=== PATIENT | female | born 1955 | race Caucasian/White ===

== ENCOUNTER 2018-11-29 10:45 | Observation (INO) ==
[2018-11-29] MEDS ORDERED: Naloxone 0.4 MG/ML INJ IVP PRN (13:33)
[2018-11-29] MEDS ORDERED: D5% in Water 1,000 ML IVC PRN (13:46)
[2018-11-29] MEDS ORDERED: *HR* Dextrose 50 % in Water (Syg) 50 ML SYRINGE IVP PRN (13:46)
[2018-11-29] MEDS ORDERED: Dextrose Gel 15 GM/37.5 ML TUBE PO PRN ×2 (13:46)
--- NOTE | 2018-11-29 14:00 | Internal Med History&Physical ---
Date of Encounter: 11/29/18 Time of Encounter: 13:56 Internal Medicine - H&P: HPI Chief complaint: Weakness Admitted From: Home Plans for Post Hospital Care: Home History of present illness: Ms. Ortega is a 63 year old female with past medical history significant for diabetes mellitus type 2 was admitted to [facility] after transfer from [facility]. Patient went to the emergency room today with the complaint of weakness and dizziness which is going on for past few weeks. Patient reports that her weakness got significantly worse in past 2-3 days. Patient reports she started feeling dizzy when she stand up in past 2-3 days. Patient denied any injury to head and passing out. Patient denies any loss of consciousness. Patient denies any tingling and numbness. Patient denies any dark stool, rectal bleeding, and blood in the urine. Patient denies any fever and chills. Patient denies any chest pain, palpitation, and difficulty breathing. Patient denied any nausea or vomiting and abdominal pain. Patient denied any recent nonintentional weight loss. Upon presentation at [place] emergency room patient's vitals were stable. Patient had a blood work done at [facility]. Patient's CBC was significant for hemoglobin of 3.2 with low MCV and low MCH and low MCHC and high RDW. Her sestamibi C was within normal limit and platelet was elevated at 578. LDH was low and bilirubin was within normal limit Vitamin B-12 and TSH was within normal limit. Patient was transferred to [facility] for further workup. Past medical, past surgical, social, and family history reviewed with the patient. Past Med Surg Social Fam HX - Past Medical History Medical history: diabetes Psychiatric history: no psych history - Past Surgical History Surgical History: - Social History Smoking Status: Former smoker Smokeless Tobacco Status: No Alcohol use: occasionally Drug use: none Occupational status: retired Current living situation: Home, With Family Activity Level: Independent ambulation Recent Out of Country Travel Within the Last 8 Weeks: No Exposure or Possible Exposure to Illness During Travel: No - Family History Mother Hx Family Cardiac Disorders: Yes (Hypertension) Hx Family Endocrine Disorder: Yes (Diabetes mellitus type 2) Father Hx Family Respiratory Disorders: Yes (Emphysema) Internal Medicine - H&P: Meds No Known Home Drugs 11/29/18 [History] Allergy/AdvReac Type Severity Reaction Status Date / Time No Known Allergies Allergy Verified 11/29/18 08:46 All Systems PM: A 10-system review of systems was performed and is negative for pertinent findings except as documented above in the HPI. - Constitutional Vitals: Temp Pulse Resp BP Pulse Ox 98.2 F 94 16 152/82 100 11/29/18 13:54 11/29/18 13:54 11/29/18 13:54 11/29/18 13:54 11/29/18 13:54 General appearance: Present: cooperative, A&O X 3 Exam: General: A & O 3, Inmild distress. Mom noticed pale looking female. Appears older than the stated age HENNT: PERRLA. Head atraumatic and neck supple Eyes: Pale conjuctiva CVS S1 and S2 regular, no murmur RS: Clear to air entry bilaterally, no wheeze, no crackles Abdomen: Soft and nontender. Bowel sounds normal 4 Extremities: No cyanosis, clubbing, and edema Neurology: Cranial 2 through 12 normal. Motor strength 5/5 bilaterally. Sensation intact Psychiatry: A & O X 3 Skin: Pale and dry - Assessment and Plan (1) Microcytic hypochromic anemia Current Visit: Yes Status: Acute Assessment and plan: Pt presented to the hospital with complaint of weakness and dizziness for possible freaks. Patient reports that weakness and dizziness has worsened significantly over possible base. Patient initial workup with the removal hemoglobin at 3.8, low MCV, low MCHC. Patient had a low ferritin level, low energy as able, and normal bilirubin. Most likely microcytic hypochromic anemia likely due to iron deficiency due to poor dietary intake. Patient denied any history of alcoholism. Patient denied any history of weight loss. Patient's WBC is within normal limits and platelets are elevated which is likely reactive. Patient does not have Pancytopenia and no weight loss so malignant etiology is less likely at this time. Patient's ferritin and [place] emergency room was low. Will get iron panel. LDH level low with normal hemoglobin does not suggest any hemolytic anemia as well. Patient denies any dark stool, rectal bleeding, and blood in the urine, however GI bleed needs to be ruled out at this time. - Type and cross - PRBC 2 ordered - H&H every 6 hours. Next H&H draw at 6 PM - We will transfuse 2 more units after next H&H if needed - Iron panel ordered. - Surgery on consult. Appreciate input and recommendations (2) Iron deficiency anemia Current Visit: Yes Status: Acute Assessment and plan: Plan as assessment #1 Qualifiers: Iron deficiency anemia type: unspecified iron deficiency Qualified Code(s): D50.9 - Iron deficiency anemia, unspecified (3) DM type 2 (diabetes mellitus, type 2) Current Visit: Yes Status: Chronic Assessment and plan: Patient placed on low-dose corrective insulin regimen. Patient reports she was not on any medication for diabetes before due to insurance issue. We will continue to monitor patient since patient is insulin naive. Qualifiers: Diabetes mellitus buttermaker helper insulin use: without buttermaker helper use Diabetes mellitus complication status: without complication Qualified Code(s): E11.9 - Type 2 diabetes mellitus without complications (4) DVT prophylaxis Current Visit: Yes Status: Acute Assessment and plan: No heparin due to possibility of acute GI bleed EPCDs - Time Spent With Patient Total time spent is greater than 50% in coordination of care (as documented) at patient's floor/unit and/or counseling patient: Greater than 35 minutes
[2018-11-29 15:15] LABS: % Iron Saturation 5 % (15-50); Iron 28 mcg/dL (50-170); Transferrin 437 mg/dL (203-362)
[2018-11-29] MEDS ORDERED: 0.9 % Sodium Chloride 250 ML ONE (15:42)
[2018-11-29 15:45] LABS: Ferritin < 8 ng/mL (10-120)
[2018-11-29] MEDS: Insulin LISPRO 300 UNITS/3 ML VIAL SQ SCH ×2 (17:54→21:21)
[2018-11-29] MEDS: 0.9 % Sodium Chloride 1,000 ML IVC SCH (21:20)
[2018-11-29 21:26] LABS: Hematocrit 26.3 % (35.3-44.9); Hemoglobin 8.1 g/dL (11.5-15.4)
[2018-11-30 01:23] LABS: BUN/Creatinine Ratio 21 (6-26); Blood Urea Nitrogen 11 mg/dL (8-23); Calcium 8.1 mg/dL (8.6-10.3); Carbon Dioxide 23 mEq/L (23-29); Chloride 103 mEq/L (98-107); Glucose 189 mg/dL (70-105); Osmolality,Calculated 282 (280-300); Sodium 134 mEq/L (136-145); eGFR For African Americans > 60 (> 60); eGFR For Non-African Americans > 60 (> 60)
[2018-11-30 01:30] LABS: Basophils % 0.3 %; Eosinophils % 0.3 %; Hematocrit 26.4 % (35.3-44.9); Immature Granulocytes % 0.8 % (0-4); Lymphocytes # 0.9 K/mcL (0.6-4.6); Lymphocytes % 8.3 %; Mean Corpuscular HGB Conc 30.3 g/dL (31.6-35.5); Mean Corpuscular Hemoglobin 21.2 pg (28.0-33.3); Mean Platelet Volume 9.1 fL (9.4-12.4); Monocytes % 9.6 %; Neutrophils # 8.3 K/mcL (1.6-8.9); Nucleated Red Blood Cells 0.4 /100 WBC (0); Platelet Count 483 K/mcL (140-400); Red Blood Count 3.77 M/mcL (3.82-4.97); Red Cell Distribution Width 23.5 % (11.5-14.5); Segmented Neutrophils % 80.7 %; White Blood Count 10.3 K/mcL (4.3-11.1)
[2018-11-30 02:29] LABS: Anisocytosis 1+ (Not Present)
[2018-11-30 02:30] LABS: Hypochromasia Present (Not Present); Poikilocytosis 1+ (Not Present); Polychromasia 1+ (Not Present)
[2018-11-30 06:38] LABS: Hematocrit 29.2 % (35.3-44.9); Hemoglobin 8.9 g/dL (11.5-15.4)
[2018-11-30] MEDS ORDERED: Iron Sucrose Complex 400 MG in 0.9 % Sodium Chloride 250 ML IVPB ONE (09:00)
[2018-11-30] MEDS: Insulin LISPRO 300 UNITS/3 ML VIAL SQ SCH ×4 (09:21→20:37)
--- NOTE | 2018-11-30 09:28 | Internal Med Progress Note ---
Hospitalist Progress Note - Encounter Date of Encounter: 11/30/18 Time of Encounter: 09:25 - Subjective Interval History: Patient was seen and examined today. Patient denies any chest pain, palpitation, independent feeding. Patient denies fever and chills. Patient reports no acute issues and concerns overnight. - Exam Vitals: Temp Pulse Resp BP Pulse Ox 98.3 F 85 17 130/65 98 11/30/18 07:33 11/30/18 07:33 11/30/18 07:33 11/30/18 07:33 11/30/18 07:33 Exam: General: A & O 3, In mild distress. CVS S1 and S2 regular, no murmur RS: Clear to air entry bilaterally, no wheeze, no crackles Abdomen: Soft and nontender. Bowel sounds normal 4 Extremities: No cyanosis, clubbing, and edema Neurology: Cranial 2 through 12 normal. Motor strength 5/5 bilaterally. Sensation intact Psychiatry: A & O X 3 Skin: Pale and dry - Assessment and Plan (1) Microcytic hypochromic anemia Current Visit: Yes Status: Acute Assessment and Plan: Pt presented to the hospital with complaint of weakness and dizziness. Patient's workup at admission shows hemoglobin of 3.8. Patient had type and cross and PRBC X 2 transfused. - Continue telemetry - Hemoglobin this morning 8.9 next H&H at noon. Transfuse PRBC as needed. - We will place patient on iron transfusion. - Ferrous sulfate 325 by mouth daily. - Surgery on consult. Appreciate input and recommendations (2) Iron deficiency anemia Current Visit: Yes Status: Acute Assessment and Plan: Plan as assessment #1 (3) DM type 2 (diabetes mellitus, type 2) Current Visit: Yes Status: Chronic Assessment and Plan: Continue low-dose corrective insulin regimen. (4) DVT prophylaxis Current Visit: Yes Status: Acute Assessment and Plan: EPCDs - Time Spent with Patient Total time spent is greater than 50% in coordination of care (as documented) at patient's floor/unit and/or counseling patient: 25 - 35 minutes Plan of Care Discussed with: patient Internal Medicine: Result - Labs CBC & Chem 7: 11/30/18 06:08 11/30/18 00:13 Labs: Short CBC 11/29/18 11/30/18 11/30/18 Range/Units 20:51 00:13 06:08 WBC 10.3 (4.3-11.1) K/mcL Hgb 8.1 L D 8.0 L 8.9 L (11.5-15.4) g/dL Hct 26.3 L 26.4 L 29.2 L (35.3-44.9) % Plt Count 483 H (140-400) K/mcL Neutrophils # 8.3 (1.6-8.9) K/mcL BMP 11/30/18 00:13 Sodium 134 L Potassium 3.0 L Chloride 103 Carbon Dioxide 23 BUN 11 Creatinine 0.52 L Glucose 189 H Calcium 8.1 L Consult Discharge Plan - Plan Referrals: NONE,PCP [Primary Care Provider] - (2) Iron deficiency anemia Qualifiers: Iron deficiency anemia type: unspecified iron deficiency Qualified Code(s): D50.9 - Iron deficiency anemia, unspecified (3) DM type 2 (diabetes mellitus, type 2) Qualifiers: Diabetes mellitus terminal gauger insulin use: without terminal gauger use Diabetes mellitus complication status: without complication Qualified Code(s): E11.9 - Type 2 diabetes mellitus without complications
--- NOTE | 2018-11-30 10:18 | AcuteCare Surgery Consult Note ---
Date of Encounter: 11/30/18 Time of Encounter: 10:00 Assessment and Plan (1) Microcytic hypochromic anemia Current Visit: Yes Status: Acute The patient has not previously had upper endoscopy or colonoscopy. We will plan bowel prep today followed by EGD and colonoscopy tomorrow. Clear liquids today. Nothing by mouth after midnight. Orders are written for the diet restrictions and bowel prep History of Present Illness Consult date: 11/30/18 Reason for consult: endoscopy History of present illness: The patient is a 63-year-old female with no previous endoscopic evaluation of the bowel. She is not on blood thinners. She presented with microcytic hypoc hromic anemia. She denies vomiting blood or epigastric pain. She denies visible rectal bleeding. She now presents for evaluation of the gastrointestinal tract for gastrointestinal bleeding. We will plan EGD and colonoscopy. She has received blood transfusion over the evening and is hemodynamically stable. Proceed with bowel prep today. We will plan endoscopy 12/01/2018 Past Med Surg Social Fam HX - Past Medical History Medical history: diabetes Psychiatric history: no psych history - Past Surgical History Surgical History: - Social History Smoking Status: Former smoker Smokeless Tobacco Status: No Alcohol use: occasionally Drug use: none - Family History Mother Hx Family Cardiac Disorders: Yes (Hypertension) Hx Family Endocrine Disorder: Yes (Diabetes mellitus type 2) Father Hx Family Respiratory Disorders: Yes (Emphysema) Medications and Allergies No Known Home Drugs 11/29/18 [History] Allergy/AdvReac Type Severity Reaction Status Date / Time No Known Allergies Allergy Verified 11/29/18 08:46 Review of Systems All systems PM: The remainder of the systems were reviewed and are negative General Surgery Exam Initial Vital Signs Temp Pulse Resp BP Pulse Ox 98.2 F 94 16 152/82 100 11/29/18 13:54 11/29/18 13:54 11/29/18 13:54 11/29/18 13:54 11/29/18 13:54 - General physical appearance well developed, well nourished, no distress - Neck no masses, no bruits, trachea midline, no lymphadectomy, no venous distension - Respiratory normal expansion, normal respiratory effort, clear to auscultation - Cardiovascular Cardiovascular exam: Present: RRR, no murmurs/rubs/gallops - Abdomen Abdomen general surgery: Present: bowel sounds present, soft, non tender - Neurologic Present: CN 2-12 grossly intact, normal coordination, normal sensation - Psychiatric Psychiatric general surgery: Present: appropriate, oriented to person, oriented to place, oriented to time, speech is normal, memory intact Exam Initial Vital Signs Temp Pulse Resp BP Pulse Ox 98.2 F 94 16 152/82 100 11/29/18 13:54 11/29/18 13:54 11/29/18 13:54 11/29/18 13:54 11/29/18 13:54 Results - Labs 11/30/18 06:08 11/30/18 00:13 Abnormal lab results RBC 3.77 M/mcL (3.82-4.97) L 11/30/18 00:13 Hgb 8.9 g/dL (11.5-15.4) L 11/30/18 06:08 Hct 29.2 % (35.3-44.9) L 11/30/18 06:08 MCV 70.0 fL (83.0-100.0) L D 11/30/18 00:13 MCH 21.2 pg (28.0-33.3) L 11/30/18 00:13 MCHC 30.3 g/dL (31.6-35.5) L 11/30/18 00:13 RDW 23.5 % (11.5-14.5) H 11/30/18 00:13 Plt Count 483 K/mcL (140-400) H 11/30/18 00:13 MPV 9.1 fL (9.4-12.4) L 11/30/18 00:13 Nucleated RBCs/100 WBC 0.4 /100 WBC (0) H 11/30/18 00:13 Platelet Estimate Slight increase (Normal) H 11/30/18 00:13 Polychromasia 1+ (Not Present) A 11/30/18 00:13 Hypochromasia Present (Not Present) A 11/30/18 00:13 Poikilocytosis 1+ (Not Present) A 11/30/18 00:13 Anisocytosis 1+ (Not Present) A 11/30/18 00:13 Sodium 134 mEq/L (136-145) L 11/30/18 00:13 Potassium 3.0 mEq/L (3.5-5.1) L 11/30/18 00:13 Creatinine 0.52 mg/dL (0.60-1.20) L 11/30/18 00:13 Glucose 189 mg/dL (70-105) H 11/30/18 00:13 POC Glucose 301 mg/dL (70-99) H 11/30/18 08:10 Calcium 8.1 mg/dL (8.6-10.3) L 11/30/18 00:13 Iron 28 mcg/dL (50-170) L 11/29/18 14:41 % Saturation 5 % (15-50) L 11/29/18 14:41 Transferrin 437 mg/dL (203-362) H 11/29/18 14:41 Ferritin < 8 ng/mL (10-120) L 11/29/18 14:41 Crossmatch See Detail 11/29/18 14:41 Diabetes panel 11/30/18 Range/Units 00:13 Sodium 134 L (136-145) mEq/L Potassium 3.0 L (3.5-5.1) mEq/L Chloride 103 (98-107) mEq/L Carbon Dioxide 23 (23-29) mEq/L BUN 11 (8-23) mg/dL Creatinine 0.52 L (0.60-1.20) mg/dL Glucose 189 H (70-105) mg/dL Calcium 8.1 L (8.6-10.3) mg/dL Calcium panel 11/30/18 Range/Units 00:13 Calcium 8.1 L (8.6-10.3) mg/dL Pituitary panel 11/30/18 Range/Units 00:13 Sodium 134 L (136-145) mEq/L Potassium 3.0 L (3.5-5.1) mEq/L Chloride 103 (98-107) mEq/L Carbon Dioxide 23 (23-29) mEq/L BUN 11 (8-23) mg/dL Creatinine 0.52 L (0.60-1.20) mg/dL Glucose 189 H (70-105) mg/dL Calcium 8.1 L (8.6-10.3) mg/dL Adrenal panel 11/30/18 Range/Units 00:13 Sodium 134 L (136-145) mEq/L Potassium 3.0 L (3.5-5.1) mEq/L Chloride 103 (98-107) mEq/L Carbon Dioxide 23 (23-29) mEq/L BUN 11 (8-23) mg/dL Creatinine 0.52 L (0.60-1.20) mg/dL Glucose 189 H (70-105) mg/dL Calcium 8.1 L (8.6-10.3) mg/dL All other labs normal. Consult Discharge Plan - Plan Referrals: NONE,PCP [Primary Care Provider] -
[2018-11-30 12:09] LABS: Hematocrit 27.9 % (35.3-44.9); Hemoglobin 8.5 g/dL (11.5-15.4)
[2018-11-30 18:41] LABS: Hematocrit 26.3 % (35.3-44.9); Hemoglobin 8.1 g/dL (11.5-15.4)
[2018-11-30] MEDS: 0.9 % Sodium Chloride 1,000 ML IVC SCH (20:35)
[2018-12-01 04:49] LABS: Basophils # 0.1 K/mcL (0.0-0.2); Basophils % 0.3 %; Eosinophils # 0.1 K/mcL (0.0-0.6); Eosinophils % 0.6 %; Hematocrit 25.3 % (35.3-44.9); Hemoglobin 7.7 g/dL (11.5-15.4); Immature Granulocytes % 0.7 % (0-4); Lymphocytes # 0.8 K/mcL (0.6-4.6); Lymphocytes % 5.4 %; Mean Corpuscular HGB Conc 30.4 g/dL (31.6-35.5); Mean Corpuscular Hemoglobin 21.3 pg (28.0-33.3); Mean Corpuscular Volume 69.9 fL (83.0-100.0); Mean Platelet Volume 8.8 fL (9.4-12.4); Monocytes # 1.3 K/mcL (0.0-1.3); Monocytes % 8.3 %; Nucleated Red Blood Cells 0.3 /100 WBC (0); Platelet Count 435 K/mcL (140-400); Red Blood Count 3.62 M/mcL (3.82-4.97); Red Cell Distribution Width 23.5 % (11.5-14.5); Segmented Neutrophils % 84.7 %; White Blood Count 15.3 K/mcL (4.3-11.1)
[2018-12-01 05:02] LABS: BUN/Creatinine Ratio 8 (6-26); Blood Urea Nitrogen 4 mg/dL (8-23); Calcium 8.4 mg/dL (8.6-10.3); Carbon Dioxide 22 mEq/L (23-29); Chloride 107 mEq/L (98-107); Glucose 281 mg/dL (70-105); Osmolality,Calculated 285 (280-300); Potassium 3.6 mEq/L (3.5-5.1); Sodium 134 mEq/L (136-145); eGFR For African Americans > 60 (> 60); eGFR For Non-African Americans > 60 (> 60)
[2018-12-01 05:31] LABS: Hypochromasia Present (Not Present)
[2018-12-01 05:32] LABS: Anisocytosis 1+ (Not Present); Schistocytes 1+ (Not Present)
[2018-12-01 05:34] LABS: Platelet Estimate Increased (Normal)
[2018-12-01] MEDS: Insulin LISPRO 300 UNITS/3 ML VIAL SQ SCH ×4 (09:26→21:59)
[2018-12-01] MEDS: Iron Sucrose Complex 200 MG in 0.9 % Sodium Chloride 100 ML IVPB SCH (09:27)
--- NOTE | 2018-12-01 09:36 | Anesthesia Evaluation PreOp ---
Date of Encounter: 12/01/18 Time of Encounter: 10:11 - Past History Planned Operation: EGD/c-scope Cardiac History: Denies any Significant Hx Pulmonary History: Denies Any Significant HX WINE MERCHANT History: Denies Any Significant HX Other Medical History: Diabetes Type II Anesthesia History: No Prior Anesthetic Complications, Past Anesthesia (C/S) Alcohol Use: occasionally Drug use: none Medications and Allergies No Known Home Drugs 11/29/18 [History] Allergy/AdvReac Type Severity Reaction Status Date / Time No Known Allergies Allergy Verified 11/30/18 14:14 - Meds/Allergy Pre-op Review Medications Reviewed: Yes Allergies Reviewed: Yes Beta Blockers on Current Med List: No Anesthesia Results - Labs 12/01/18 04:22 12/01/18 04:22 - Imaging EKG: report reviewed Anesthesia Exam Selected Entries 12/01/18 07:17 Temperature 98.8 F Pulse Rate 82 Respiratory Rate 16 Blood Pressure 101/62 O2 Sat by Pulse Oximetry 100 Oxygen Delivery Method Room Air Weight: 52kg - HEENT Pupil (Motor): EOMI Mallampati: II Teeth: Missing, Poor dentition Oral Opening: Greater than 3 - WINE MERCHANT LOC: Oriented WINE MERCHANT Motor: Normal RUE, Normal LUE, Normal RLE, Normal LLE, Normal Face WINE MERCHANT Sensory: Normal: RUE, LUE, RLE, LLE, Face - Cardiac Rhythm: Regular Murmur: None - Pulmonary Breath Sounds: bilateral Clear Respiratory Effort: Symmetrical Anesthesia Assess/Plan ASA Score: 2 Level of consciousness: Cooperative, Oriented Anesthetic Plan: MAC Monitoring Plan: Standard Monitors Recovery Plan: Other (agrees to MAC)
[2018-12-01] MEDS ORDERED: Tetracaine/Benzocaine/Butamben 1 SPRAY AEROSOL MM ONE (10:23)
[2018-12-01] MEDS ORDERED: Simethicone 40 MG/0.6 ML MLS IR ONE (10:23)
[2018-12-01] MEDS ORDERED: 0.9 % Sodium Chloride 1,000 ML IVC SCH (10:30)
[2018-12-01 10:32] LABS: Hematocrit 25.8 % (35.3-44.9); Hemoglobin 7.8 g/dL (11.5-15.4)
[2018-12-01] MEDS ORDERED: *HR* PHENYLEPHRINE 1,000 MCG/10 ML SYRINGE IVP ONE (10:37)
--- NOTE | 2018-12-01 11:45 | Internal Med Progress Note ---
Hospitalist Progress Note - Encounter Date of Encounter: 12/01/18 Time of Encounter: 11:42 - Subjective Interval History: Patient was seen and examined at bedside today. She denies any acute issues and concerns at this time. Denies dyspnea, palpitation, and difficulty breathing. - Exam Vitals: Temp Pulse Resp BP Pulse Ox 98.3 F 84 18 116/58 98 12/01/18 10:19 12/01/18 10:19 12/01/18 10:19 12/01/18 10:19 12/01/18 10:19 Exam: General: A & O 3, In mild distress. CVS S1 and S2 regular, no murmur RS: Clear to air entry bilaterally, no wheeze, no crackles Abdomen: Soft and nontender. Bowel sounds normal 4 Extremities: No cyanosis, clubbing, and edema Neurology: Cranial 2 through 12 normal. Motor strength 5/5 bilaterally. Sensation intact Psychiatry: A & O X 3 Skin: Pale and dry - Assessment and Plan (1) Microcytic hypochromic anemia Current Visit: Yes Status: Acute Assessment and Plan: presented to the hospital with complaint of weakness and dizziness. Patient's workup at admission shows hemoglobin of 3.8. Patient had type and cross and PRBC X 2 transfused. Pt hemoglobin level 7.8. Pt got EGD done today which was unremarkable for any acute abnormality. Patient had a colonoscopy done today which could not be done due to poor bowel prep. Colonoscopy tomorrow. Continue ferrous sulfate 325 MG by mouth daily Continue IV iron daily (2) Iron deficiency anemia Current Visit: Yes Status: Acute Assessment and Plan: Plan as assessment #1 (3) DM type 2 (diabetes mellitus, type 2) Current Visit: Yes Status: Chronic Assessment and Plan: Continue low-dose corrective insulin regimen. (4) DVT prophylaxis Current Visit: Yes Status: Acute Assessment and Plan: EPCDs - Time Spent with Patient Total time spent is greater than 50% in coordination of care (as documented) at patient's floor/unit and/or counseling patient: less than 15 minutes Plan of Care Discussed with: patient Internal Medicine: Result - Labs CBC & Chem 7: 12/01/18 09:49 12/01/18 04:22 Labs: Short CBC 11/30/18 11/30/18 12/01/18 Range/Units 11:54 18:10 04:22 WBC 15.3 H (4.3-11.1) K/mcL Hgb 8.5 L 8.1 L 7.7 L (11.5-15.4) g/dL Hct 27.9 L 26.3 L 25.3 L (35.3-44.9) % Plt Count 435 H (140-400) K/mcL Neutrophils # 13.0 H (1.6-8.9) K/mcL 12/01/18 Range/Units 09:49 WBC (4.3-11.1) K/mcL Hgb 7.8 L (11.5-15.4) g/dL Hct 25.8 L (35.3-44.9) % Plt Count (140-400) K/mcL Neutrophils # (1.6-8.9) K/mcL BMP 12/01/18 04:22 Sodium 134 L Potassium 3.6 Chloride 107 Carbon Dioxide 22 L BUN 4 L Creatinine 0.50 L Glucose 281 H Calcium 8.4 L Consult Discharge Plan - Plan Referrals: NONE,PCP [Primary Care Provider] - ____ (2) Iron deficiency anemia Qualifiers: Iron deficiency anemia type: unspecified iron deficiency Qualified Code(s): D50.9 - Iron deficiency anemia, unspecified (3) DM type 2 (diabetes mellitus, type 2) Qualifiers: Diabetes mellitus nursing home insulin use: without terminal press operator use Diabetes mellitus complication status: without complication Qualified Code(s): E11.9 - Type 2 diabetes mellitus without complications
[2018-12-01 16:06] LABS: Hematocrit 28.9 % (35.3-44.9); Hemoglobin 8.6 g/dL (11.5-15.4)
[2018-12-02 02:32] LABS: BUN/Creatinine Ratio 7 (6-26); Blood Urea Nitrogen 3 mg/dL (8-23); Calcium 8.5 mg/dL (8.6-10.3); Carbon Dioxide 19 mEq/L (23-29); Chloride 107 mEq/L (98-107); Glucose 251 mg/dL (70-105); Osmolality,Calculated 289 (280-300); Potassium 2.7 mEq/L (3.5-5.1); Sodium 137 mEq/L (136-145); eGFR For African Americans > 60 (> 60); eGFR For Non-African Americans > 60 (> 60)
[2018-12-02 04:34] LABS: Basophils # 0.1 K/mcL (0.0-0.2); Basophils % 0.4 %; Eosinophils # 0.2 K/mcL (0.0-0.6); Eosinophils % 1.4 %; Hematocrit 27.7 % (35.3-44.9); Hemoglobin 8.1 g/dL (11.5-15.4); Immature Granulocytes % 0.9 % (0-4); Lymphocytes # 0.6 K/mcL (0.6-4.6); Lymphocytes % 5.5 %; Mean Corpuscular HGB Conc 29.2 g/dL (31.6-35.5); Mean Corpuscular Hemoglobin 21.5 pg (28.0-33.3); Mean Corpuscular Volume 73.5 fL (83.0-100.0); Mean Platelet Volume 8.8 fL (9.4-12.4); Monocytes # 1.2 K/mcL (0.0-1.3); Monocytes % 10.2 %; Neutrophils # 9.3 K/mcL (1.6-8.9); Nucleated Red Blood Cells 1.1 /100 WBC (0); Platelet Count 405 K/mcL (140-400); Red Blood Count 3.77 M/mcL (3.82-4.97); Red Cell Distribution Width 24.1 % (11.5-14.5); Segmented Neutrophils % 81.6 %; White Blood Count 11.4 K/mcL (4.3-11.1)
[2018-12-02 05:42] LABS: Anisocytosis 1+ (Not Present); Hypochromasia Present (Not Present); Polychromasia 1+ (Not Present)
[2018-12-02 05:43] LABS: Macrocytosis Present (Not Present)
[2018-12-02] MEDS ORDERED: *HR* Propofol 200 MG/20 ML VIAL IVP ONE ×2 (07:01→07:02)
[2018-12-02] MEDS ORDERED: Lidocaine -MPF 2% 2 ML VIAL ONE (07:01)
[2018-12-02] MEDS ORDERED: EPHEDrine 50 MG/ML VIAL ONE (07:08)
[2018-12-02] MEDS ORDERED: *HR* PHENYLEPHRINE 1,000 MCG/10 ML SYRINGE IVP ONE (07:40)
--- NOTE | 2018-12-02 07:53 | AcuteCareSurgery Progress Note ---
Date of Encounter: 12/02/18 Time of Encounter: 07:52 - Assessment and Plan (1) Iron deficiency anemia Current Visit: Yes Status: Acute We will go ahead and attempt a colonoscopy today. Patient is status post EGD yesterday. Qualifiers: Iron deficiency anemia type: unspecified iron deficiency Qualified Code(s): D50.9 - Iron deficiency anemia, unspecified Subjective Patient reports: other (Patient states that she had several BMs yesterday. Is not sure if she is clear.) Objective Vital Signs - Last 8 Hours Temp Pulse Resp BP Pulse Ox 12/02/18 07:45 98.3 F 87 17 148/70 100 12/02/18 04:10 97.8 F 78 17 113/64 99 Intake and Output 12/01/18 12/01/18 12/02/18 15:59 23:59 07:59 Intake Total 470 / 470 200 / 200 Output Total 850 / 850 Balance -380 / -380 200 / 200 Intake: IV Fluids 110 / 110 200 / 200 Venofer 200 MG In 0.9 % Sodium 110 / 110 Chloride 100 ML @ 200 mls/hr IVPB DAILY [facility] Rx#:[id number] Potassium Chloride 10 mEq/100mL 200 / 200 10 meq In 100 ml @ 100 mls/hr IVPB Q1H [facility] Rx#:[id number] Oral 360 / 360 Output: Urine 250 / 250 Urine/Stool Mix 600 / 600 Other: Meal Lunch Percent of Meal Consumed 100% Stool Size Small Stool Consistency formed loose liquid Stool Color Brown # Voids 1 1 # Bowel Movements 1 1 Weight 50.3 kg Blood Glucose* 180 367 238 - General physical appearance well nourished, no distress - Abdomen Abdomen: Present: soft, non tender - Labs 12/02/18 02:03 12/02/18 02:03 Diabetes panel 12/02/18 Range/Units 02:03 Sodium 137 (136-145) mEq/L Potassium 2.7 L (3.5-5.1) mEq/L Chloride 107 (98-107) mEq/L Carbon Dioxide 19 L (23-29) mEq/L BUN 3 L (8-23) mg/dL Creatinine 0.45 L (0.60-1.20) mg/dL Glucose 251 H (70-105) mg/dL Calcium 8.5 L (8.6-10.3) mg/dL Calcium panel 12/02/18 Range/Units 02:03 Calcium 8.5 L (8.6-10.3) mg/dL Pituitary panel 12/02/18 Range/Units 02:03 Sodium 137 (136-145) mEq/L Potassium 2.7 L (3.5-5.1) mEq/L Chloride 107 (98-107) mEq/L Carbon Dioxide 19 L (23-29) mEq/L BUN 3 L (8-23) mg/dL Creatinine 0.45 L (0.60-1.20) mg/dL Glucose 251 H (70-105) mg/dL Calcium 8.5 L (8.6-10.3) mg/dL Adrenal panel 12/02/18 Range/Units 02:03 Sodium 137 (136-145) mEq/L Potassium 2.7 L (3.5-5.1) mEq/L Chloride 107 (98-107) mEq/L Carbon Dioxide 19 L (23-29) mEq/L BUN 3 L (8-23) mg/dL Creatinine 0.45 L (0.60-1.20) mg/dL Glucose 251 H (70-105) mg/dL Calcium 8.5 L (8.6-10.3) mg/dL Consult Discharge Plan - Plan Referrals: NONE,PCP [Primary Care Provider] -
--- NOTE | 2018-12-02 08:20 | Internal Med Progress Note ---
Hospitalist Progress Note - Encounter Date of Encounter: 12/02/18 Time of Encounter: 08:20 - Exam Vitals: Temp Pulse Resp BP Pulse Ox 98.3 F 87 17 148/70 100 12/02/18 07:45 12/02/18 07:45 12/02/18 07:45 12/02/18 07:45 12/02/18 07:45 - Assessment and Plan (1) Microcytic hypochromic anemia Current Visit: Yes Status: Acute (2) Iron deficiency anemia Current Visit: Yes Status: Acute (3) DM type 2 (diabetes mellitus, type 2) Current Visit: Yes Status: Chronic (4) DVT prophylaxis Current Visit: Yes Status: Acute - Time Spent with Patient Total time spent is greater than 50% in coordination of care (as documented) at patient's floor/unit and/or counseling patient: Internal Medicine: Result - Labs CBC & Chem 7: 12/02/18 02:03 12/02/18 02:03 Labs: Short CBC 12/01/18 12/01/18 12/02/18 Range/Units 09:49 15:54 02:03 WBC 11.4 H (4.3-11.1) K/mcL Hgb 7.8 L 8.6 L 8.1 L (11.5-15.4) g/dL Hct 25.8 L 28.9 L 27.7 L (35.3-44.9) % Plt Count 405 H (140-400) K/mcL Neutrophils # 9.3 H (1.6-8.9) K/mcL BMP 12/02/18 02:03 Sodium 137 Potassium 2.7 L Chloride 107 Carbon Dioxide 19 L BUN 3 L Creatinine 0.45 L Glucose 251 H Calcium 8.5 L Consult Discharge Plan - Plan Referrals: NONE,PCP [Primary Care Provider] - (2) Iron deficiency anemia Qualifiers: Iron deficiency anemia type: unspecified iron deficiency Qualified Code(s): D50.9 - Iron deficiency anemia, unspecified (3) DM type 2 (diabetes mellitus, type 2) Qualifiers: Diabetes mellitus longterm insulin use: without terminal carman use Diabetes mellitus complication status: without complication Qualified Code(s): E11.9 - Type 2 diabetes mellitus without complications
--- NOTE | 2018-12-02 08:38 | Event Note ---
Date of Encounter: 12/02/18 Time of Encounter: 08:38 Colonoscopy performed. Small internal hemorrhoids identified otherwise normal. Okay to advance diet as tolerated. We will sign off; please contact us if there are any questions.
[2018-12-02] MEDS: Iron Sucrose Complex 200 MG in 0.9 % Sodium Chloride 100 ML IVPB SCH (09:46)
[2018-12-02] MEDS: Insulin LISPRO 300 UNITS/3 ML VIAL SQ SCH ×4 (09:48→22:12)
--- NOTE | 2018-12-02 12:34 | Discharge Summary ---
- NOTES TO OUTPATIENT PROVIDER Notes to Outpatient Provider: Patient will need to follow-up CBC and BMP in 1-2 weeks. Patient will need to follow with hematology for anemia if does not improve with iron supplementation. Orders not resulted at time of discharge: Pending orders 12/01/18 11:12 Surgical Pathology [PTH] Routine 12/01/18 11:14 H. pylori Urease Cult. CLOtest [RM] Routine Date of Encounter: 12/02/18 Time of Encounter: 12:32 - Discharge Diagnosis (1) Microcytic hypochromic anemia Priority: Primary Status: Acute (2) Iron deficiency anemia Priority: Primary Status: Acute Qualifiers: Iron deficiency anemia type: unspecified iron deficiency Qualified Code(s): D50.9 - Iron deficiency anemia, unspecified (3) DM type 2 (diabetes mellitus, type 2) Priority: Secondary Status: Chronic Qualifiers: Diabetes mellitus halfway insulin use: without press tender long goods use Diabetes mellitus complication status: without complication Qualified Code(s): E11.9 - Type 2 diabetes mellitus without complications (4) DVT prophylaxis Priority: Secondary Status: Acute Hospital course: Ms. Ortega is a 63 year old female with past medical history of diabetes who was transferred from [facility] he did complain of weakness when she was found to have hemoglobin of 3.2. Patient received 1 PRBC and was started on iron infusion after. Surgery consult was obtained for endoscopy evaluation. Patient had EGD which was unremarkable and repeat colonoscopy due to poor prep which was also unremarkable except for small internal hemorrhoids. Patient's hemoglobin remained stable around 8 after 1 unit of PRBC without any other signs of acute bleeding. Her potassium was repleted. She is otherwise stable to be discharged home to follow up outpatient with PCP within 1-2 weeks. We will need follow-up BMP and CBC. She was discharged with iron supplement and metformin as she is not taking any diabetes medication at home. Discharge discussed with: patient, nurse, automobile sales consultant - Time Spent with Patient Total time spent providing and/or coordinating discharge services: Time spent: Greater than 30 minutes - Discharge Medications Prescriptions: New Ferrous Sulfate 325 mg PO BIDWM 30 Days #60 tablet metFORMIN [Glucophage] 500 mg PO BIDWM 30 Days #60 tablet Home Medications: Ferrous Sulfate 325 mg PO BIDWM 30 Days #60 tablet 12/02/18 [Rx] metFORMIN [Glucophage] 500 mg PO BIDWM 30 Days #60 tablet 12/02/18 [Rx] Allergies/Adverse Reactions: Allergy/AdvReac Type Severity Reaction Status Date / Time No Known Allergies Allergy Verified 11/30/18 14:14 Date of admission: 11/29/18 12:52 Primary care physician: PCP NONE Consults: 11/30/18 06:45 Consult to Surgery [CONS] Stat Consulting Provider: Acute Care Surgery Reason for Consult: Acut anemia with Hb of 3.8, consult for scope to assess GI bleed Call Completed: Yes Discharging clinician: Tobi Quiles Constitutional Vitals: Temp Pulse Resp BP Pulse Ox 98.6 F 90 18 109/55 100 12/02/18 11:52 12/02/18 11:52 12/02/18 11:52 12/02/18 11:52 12/02/18 11:52 Exam: General: In no acute distress. Respiratory exam: CTAB. no accessory muscle use, rales, rhonchi, wheezes Cardiovascular exam: RRR, +S1, +S2. no murmur, gallop, rubs. GI/Abdominal exam: Non-tender, Non-distended, normal bowel sounds, soft, no peritoneal signs. Extremities exam: no pedal edema, pulses palpable in b/l lower extremities. no calf tenderness Neurological exam: CN II-XII intact, AO X3, no focal deficits. Skin exam: pale - Patient Status Disposition: Home, Self-Care Condition: Fair - Discharge Instructions Follow Up With: NONE,PCP [Primary Care Provider] - - Diet and Activity Activity: increase activity as tolerated
[2018-12-03 07:37] VITALS: BP 115/46
[2018-12-03] MEDS ORDERED: FLU Vac QV 19-20 (6Month+)/PF 0.5 ML SYRINGE IM ONE (07:38)
[2018-12-03] MEDS: Insulin LISPRO 300 UNITS/3 ML VIAL SQ SCH (07:53)
--- NOTE | 2018-12-03 08:30 | Internal Med Progress Note ---
Hospitalist Progress Note - Encounter Date of Encounter: 12/03/18 Time of Encounter: 08:28 - Subjective Interval History: Patient seen and examined this morning and was febrile. No acute overnight events. Denies new complaints. No bloody bowel movement. Tolerating diet well. - Exam Vitals: Temp Pulse Resp BP Pulse Ox 98.7 F 81 16 115/46 99 12/03/18 07:36 12/03/18 07:36 12/03/18 07:36 12/03/18 07:36 12/03/18 07:36 Exam: General: In no acute distress. Respiratory exam: CTAB. no accessory muscle use, rales, rhonchi, wheezes Cardiovascular exam: RRR, +S1, +S2. no murmur, gallop, rubs. GI/Abdominal exam: Non-tender, Non-distended, normal bowel sounds, soft, no peritoneal signs. Extremities exam: no pedal edema, pulses palpable in b/l lower extremities. no calf tenderness Neurological exam: CN II-XII intact, AO X3, no focal deficits. Skin exam: pale - Assessment and Plan (1) Microcytic hypochromic anemia Current Visit: Yes Status: Acute (2) Iron deficiency anemia Current Visit: Yes Status: Acute (3) DM type 2 (diabetes mellitus, type 2) Current Visit: Yes Status: Chronic (4) DVT prophylaxis Current Visit: Yes Status: Acute - Summary of Assessment and Plan Summary of Assessment and Plan: Patient is stable to be discharged home to follow up outpatient with PCP within 1-2 weeks for CBC and BMP blood work. - Time Spent with Patient Total time spent is greater than 50% in coordination of care (as documented) at patient's floor/unit and/or counseling patient: Internal Medicine: Result - Labs CBC & Chem 7: 12/02/18 02:03 12/02/18 02:03 Consult Discharge Plan - Plan Instructions: Metformin (By mouth), Diabetic Hypoglycemia (DC), Diabetes Mellitus Type 2 in Adults (DC), Meal Planning with Diabetes Exchanges (DC), Anemia (DC) Referrals: Akilah Eden PARACHUTE SUPERVISOR [Advanced Practice Nurse] - 12/10/18 9:45 am (Appoinment made on 12/03/2018. ) NONE,PCP [Primary Care Provider] - Prescriptions: Ferrous Sulfate 325 mg PO BIDWM 30 Days #60 tablet Transmission Status: Received by [facility] metFORMIN [Glucophage] 500 mg PO BIDWM 30 Days #60 tablet Transmission Status: Received by [facility] (2) Iron deficiency anemia Qualifiers: Iron deficiency anemia type: unspecified iron deficiency Qualified Code(s): D50.9 - Iron deficiency anemia, unspecified (3) DM type 2 (diabetes mellitus, type 2) Qualifiers: Diabetes mellitus intermediate school teacher insulin use: without intermediate school teacher use Diabetes mellitus complication status: without complication Qualified Code(s): E11.9 - Type 2 diabetes mellitus without complications
[2018-12-03] MEDS: Iron Sucrose Complex 200 MG in 0.9 % Sodium Chloride 100 ML IVPB SCH (10:12)
[2018-12-03] MEDS ORDERED: Lidocaine 2% Syringe 100 MG/5 ML IV ONE (11:43)
[2018-12-03] MEDS ORDERED: *HR* Propofol 500 MG/50 ML BOTTLE IVC ONE (11:43)
== END 2018-12-03 11:44 | disposition home or self-care (01) ==
LOC: 2ANU → SUATTDRO 12:52
PROVIDERS: ADMIT Pharmacist; ATTEND Internal Medicine
PROC: ENDOEBX (2018-12-01 17:30)